=== PATIENT | female | born 1990 | race African-American/Black ===

== ENCOUNTER 2023-02-07 16:51 | Emergency (ER) | payer OTHER, MEDICAID ==
[~2023-02-07] VITALS: Ht 162.6 cm; Wt 90.7 kg
[2023-02-07 17:17] VITALS: BP 132/76; PULSE 123; RESP 22; TEMP 101; O2SAT 98
[2023-02-07] MEDS ORDERED: ALBUTEROL SULFATE/IPRATROPIU 3 ML SOL IH ONE (17:19)
[2023-02-07] MEDS ORDERED: ALBUTEROL SULFATE/IPRATROPIU 3 ML SOL IH SCH (17:20)
[2023-02-07] MEDS ORDERED: methylPREDNISolone SS 125 MG/2 ML VIAL IVP ONE (17:20)
[2023-02-07] MEDS ORDERED: NACL 0.9% 1,000 ML IV ONE (17:20)
[2023-02-07] MEDS ORDERED: cefTRIAXone 1,000 MG in DEXT 5% MINI-BAG PLUS 50 ML IV ONE (17:20)
[2023-02-07 17:21] VITALS: PULSE 112; RESP 19; O2SAT 98
[2023-02-07] MEDS ORDERED: cefTRIAXone 1,000 MG VIAL ONE (17:40)
[2023-02-07] MEDS ORDERED: ACETAMINOPHEN 325 MG TAB PO ONE (17:55)
[2023-02-07 18:01] VITALS: BP 131/74; RESP 22; TEMP 101
[2023-02-07 18:12] LABS: BASOPHILS # (AUTO) 0.1 K/uL (0.00-0.22); BASOPHILS % (AUTO) 0.8 % (0.0-2.0); EOSINOPHILS % (AUTO) 0.4 % (0.0-4.0); HEMATOCRIT 35.3 % (36-48); HEMOGLOBIN 10.9 g/dL (12.0-16.0); LYMPHOCYTES # (AUTO) 1.3 K/uL (2.5-16.5); MEAN CORPUSCULAR HEMOGLOBIN 19 pg (27-31); MEAN CORPUSCULAR HGB CONC 31 g/dL (33-37); MEAN CORPUSCULAR VOLUME 62.1 fL (80-94); MONOCYTES # (AUTO) 1.2 K/uL (0.8-1.0); MONOCYTES % (AUTO) 15.8 % (1.7-9.3); NEUTROPHILS # (AUTO) 4.9 K/uL (1.8-7.7); PLATELET COUNT (AUTO) 513 K/uL (140-450); RED BLOOD CELL COUNT(AUTO) 5.68 MIL/uL (4.20-5.40); RED CELL DISTRIBUTION WIDTH 19.9 % (11.6-13.7); WHITE BLOOD COUNT (AUTO) 7.5 K/uL (4.8-10.8)
[2023-02-07 18:23] VITALS: PULSE 68; O2SAT 98
[2023-02-07 18:32] LABS: FLU A ANTIGEN negative (NEGATIVE); FLU B ANTIGEN NEGATIVE (NEGATIVE)
[2023-02-07 18:39] LABS: ALANINE AMINOTRANSFERASE 20 U/L (12-78); ALBUMIN 3.7 g/dL (3.4-5.0); ALKALINE PHOSPHATASE 69 U/L (50-136); ANION GAP 13.5 (8-16); ASPARTATE AMINOTRANSFERASE 19 U/L (15-37); CALCIUM 8.5 mg/dL (8.5-10.1); CARBON DIOXIDE 27.4 mmol/L (21-32); CHLORIDE 100 mmol/L (98-107); CREATININE 0.9 mg/dL (0.6-1.3); GFR ARICAN-AMERICAN 92 mL/min (>90); GFR NON ARICAN-AMERICAN 76 mL/min (>90); GLUCOSE 87 mg/dL (74-106); SODIUM SERUM 138 mmol/L (136-145); TOTAL BILIRUBIN 0.2 mg/dL (0.0-1.0); TOTAL PROTEIN, SERUM 7.8 g/dL (6.4-8.2); UREA NITROGEN, BLOOD 6 mg/dL (7-18)
[2023-02-07 18:53] LABS: POTASSIUM 2.9 mmol/L (3.5-5.1)
[2023-02-07] MEDS ORDERED: POTASSIUM CHLORIDE 10 MEQ TABER PO ONE (18:55)
[2023-02-07 19:05] LABS: APPEARANCE,URINE CLEAR (CLEAR); BILIRUBIN,URINE NEGATIVE (NEGATIVE); BLOOD, URINE 1+ (NEGATIVE); COLOR,URINE YELLOW (YELLOW); LEUKOCYTE ESTERASE ,URINE NEGATIVE (NEGATIVE); NITRITE, URINE NEGATIVE (NEGATIVE); PROTEIN,URINE NEGATIVE (NEGATIVE); UGLUCOSE NEGATIVE (NEGATIVE); UROBILINOGEN,URINE 0.2 EU/dL (0.2 - 1)
[2023-02-07 19:55] LABS: BLOOD GAS PCO2 37.2 mmHg (35-45); BLOOD GAS PH 7.434 (7.35-7.45); BLOOD GAS PO2 78.2 mmHg (75-100)
[2023-02-07 19:56] LABS: BLOOD GAS BASE EXCESS 0.3 mmol/L (-2.0-2.0); BLOOD GAS HCO3 24.4 mmol/L (22-26)
[2023-02-07 20:08] LABS: CREATINE KINASE, TOTAL 38 U/L (26-192); LACTATE DEHYDROGENASE 193 U/L (81-234)
[2023-02-07 20:15] LABS: BACTERIA,URINE FEW /HPF (None Seen); MUCUS,URINE 2+ /LPF (None Seen); RBC,URINE 20-50 /HPF (0-5); SQUAMOUS EPITHELIAL CELL,UR 50-80 /LPF (0-3 (FEW)); WBC,URINE NONE SEEN /HPF (0-5)
[2023-02-07] MEDS ORDERED: NIRM1TAB PO (20:24)
[2023-02-07] MEDS ORDERED: POLY17PD72 PO (20:24)
[2023-02-07] MEDS ORDERED: PRED20TA5 PO (20:24)
[2023-02-07 21:28] LABS: INR 1.03 (0.8-1.2); PARTIAL THROMBOPLASTIN TIME 45.6 secs (22-35.6); PROTHROMBIN TIME 10.8 secs (10.8-13.4)
== END 2023-02-07 20:52 | disposition left against medical advice (07) ==
LOC: MED 16:51
DX: U07.1 COVID-19 (principal); J45.901 Unspecified asthma with (acute) exacerbation; E87.6 Hypokalemia; Z98.890 Other specified postprocedural states; Z79.899 Other long term (current) drug therapy; Z88.5 Allergy status to narcotic agent
CPT/HCPCS: 36415; 36600; 71045; 80053; 81001; 82550; 82803; 83615; 84484; 85025; 85379; 85384; 85610; 85730; 86140; 87040; 87086; 87426; 87804; 93005; 94640; 96365; 96375; 99285; J0696; J2930; J7030